=== PATIENT | male | born 1955 | race Two or more races ===

== ENCOUNTER 2019-07-05 20:13 | Observation (INO) | payer MEDICARE ==
[~2019-07-05] VITALS: Ht 172.7 cm; Wt 88.5 kg
[2019-07-05] MEDS ORDERED: METHYLPREDNISOLONE SOD SUCC 125 MG/2ML VIAL IV ONE (20:30)
[2019-07-05] MEDS ORDERED: ALBUTEROL/IPRATROPIUM 3 ML NEB NEB ONE (20:30)
[2019-07-05 20:48] LABS: BASOPHILS # (AUTO) 0.1 (0.0-0.1); BASOPHILS % 0.3 % (0.0-1.0); EOSINOPHILS # (AUTO) 0.2 (0.0-0.4); EOSINOPHILS % 1.5 % (0.0-6.0); HEMATOCRIT 45.2 % (38.2-49.6); HEMOGLOBIN 14.2 g/dL (14.0-18.0); LYMPHOCYTES # (AUTO) 1.9 (1.0-3.2); LYMPHOCYTES % 11.9 % (18.0-39.1); MEAN CORPUSCULAR HEMOGLOBIN 27.7 pg (28-32); MEAN CORPUSCULAR HGB CONC 31.4 g/dL (31-35); MEAN CORPUSCULAR VOLUME 88.3 fL (81-99); MONOCYTES # (AUTO) 0.7 (0.2-0.8); MONOCYTES % 4.1 % (4.4-11.3); NEUTROPHILS # (AUTO) 13.4 (2.1-6.9); NEUTROPHILS % 81.8 % (38.7-80.0); PLATELET COUNT 245 x10e3/uL (140-360); RED BLOOD COUNT 5.12 x10e6/uL (4.3-5.7); RED CELL DISTRIBUTION WIDTH 14.7 % (11.7-14.4)
[2019-07-05 21:06] LABS: ALANINE AMINOTRANSFERASE 17 IU/L (0-55); ALBUMIN 4.3 g/dL (3.5-5.0); ALBUMIN/GLOBULIN RATIO 1.1 (0.8-2.0); ALKALINE PHOSPHATASE 57 IU/L (40-150); ANION GAP 14.2 mmol/L (8-16); BLOOD UREA NITROGEN 16 mg/dL (7-26); BUN/CREATININE RATIO 15 (6-25); CALCIUM 9.1 mg/dL (8.4-10.2); CARBON DIOXIDE 22 mmol/L (22-29); CHLORIDE 106 mmol/L (98-107); CREATINE KINASE 71 IU/L (30-200); CREATININE, SERUM 1.04 mg/dL (0.72-1.25); EST GLOMERULAR FILTRATION RATE > 60 ML/MIN (60-); GLUCOSE 154 mg/dL (74-118); POTASSIUM 4.2 mmol/L (3.5-5.1); SODIUM 138 mmol/L (136-145)
[2019-07-05] MEDS ORDERED: SYNTHROID50 MCG PO (21:09)
[2019-07-05] MEDS ORDERED: CARVEDILOL12.5 MG PO (21:09)
[2019-07-05] MEDS ORDERED: LISINOPRIL10 MG PO (21:09)
[2019-07-05] MEDS ORDERED: OXYBUTYNIN CHLO10 MG (21:09)
[2019-07-05] MEDS ORDERED: PLAVIX75 MG PO (21:09)
--- NOTE | 2019-07-05 21:11 | NUR ---
Pt placed on 2 L N/C, tolerating well at this time; breathing e/u; SpO2 97-99%.
--- NOTE | 2019-07-05 21:14 | Diagnostic Imaging Report ---
Examination: Single AP view of the chest. COMPARISON: None. INDICATION: Shortness of breath DISCUSSION: The lungs are well-inflated. Perihilar predominant interstitial opacities without focal consolidation. No sizable pleural effusion or pneumothorax. Moderate enlargement of the cardiac silhouette with left subclavian approach implantable cardiac device. No acute osseous abnormalities. IMPRESSION: 1. Moderate enlargement of the cardiac silhouette with findings suggestive of interstitial pulmonary edema. Signed by: Dr. Elvin Serrano M.D. on 07/05/2019 9:12 PM
--- NOTE | 2019-07-05 21:40 | NUR ---
Pt now on RA, tolerating well thus far, will continue to monitor.
[2019-07-05] MEDS ORDERED: FUROSEMIDE INJ 10 MG/ML 4 ML VIAL IV ONE (21:45)
[2019-07-05] MEDS ORDERED: FUROSEMIDE20 MG (21:51)
--- OUTSIDE RECORDS SUMMARY | 2019-07-05 23:30 | XMS REPORT | Summary of Care ---
Author Author SAROJ CRUZ N.P. Unknown Address [facility] Phone Unavailable Care Team Providers Care Music Intern Name Role Phone ZOHAIB TORRES M.D. Unavailable Unavailable URBAN PIERCE MD Unavailable Unavailable ZOHAIB TORRES MD Unavailable Unavailable Functional Status Name Dates Details Functional status health issues are not documented Status: Name Dates Details Cognitive status health issues are not documented Status: Problems Name Dates Details Varicose veins (454.9, I83.90) Status: Active Varicose veins of bilateral lower extremities with pain (454.8, I83.813) Status: Active Varicose veins of both legs with edema (454.8, I83.893) Status: Active Medications Name Dates Details Atorvastatin Calcium TABS Active Levothyroxine Sodium TABS * Refills: 0 Active Osteo Bi-Flex Adv Double St TABS * Refills: 0 Active Carvedilol TABS * Refills: 0 Active Voltaren TBEC * Refills: 0 Active Clopidogrel Bisulfate TABS * Refills: 0 Active Albuterol AERS * Refills: 0 Active Ventolin HFA AERS * Refills: 0 Active Aspirin TABS * Refills: 0 Active Relistor TABS * Refills: 0 Active Oxybutynin Chloride TABS * Refills: 0 Active Lisinopril TABS * Refills: 0 Active Amiodarone HCl TABS * Refills: 0 Active Allergies and Adverse Reactions Name Dates Details No Known Drug Allergies (Allergy) Status: Active Past Medical History Name Dates Details H/O ventricular tachycardia (V12.59, Z86.79) Status: Resolved History of arthritis (V13.4, Z87.39) Status: Resolved History of CAD in [place] artery (414.01, I25.10) Status: Resolved History of hyperlipidemia (V12.29, Z86.39) Status: Resolved History of hypertension (V12.59, Z86.79) Status: Resolved History of hypothyroidism (V12.29, Z86.39) Status: Resolved History of ischemic cardiomyopathy (V45.89, Z86.79) Status: Resolved History of morbid obesity (V13.89, Z87.898) Status: Resolved History of stroke (V12.54, Z86.73) Status: Resolved Procedures Procedure Dates Details History of Cardioverter defibrillator insertion Completed History of PTCA Completed Immunization Name Dates Details Immunizations not documented Social History Name Dates Details - Status: Name Dates Details Never smoker Vital Signs Date Test Result Details No Known Vitals to report Results Date Description Value Details Results not documented Plan of Care Name Dates Details Planned Observations Planned Goals not documented Planned Encounters Appointment; ZOHAIB TORRES M.D. On: 30-Mar-2019 9:00 Interventions Provided Plan* I evaluated Mr. Whitney today for symptomatic varicose veins. Instructions Name Dates Details Instructions not documented Encounters Appointment; FRANCES PORTER Encounter Diagnosis: Problem not documented On: 27-May-2017 14:15 Appointment; FRANCES PORTER Encounter Diagnosis: Problem not documented On: 11-Aug-2017 9:15 Appointment; FRANCES PORTER Encounter Diagnosis: Problem not documented On: 29-Sep-2017 9:00 Appointment; MILO ORDONEZ Encounter Diagnosis: Problem not documented On: 03-Nov-2017 9:00 Appointment; FRANCES PORTER Encounter Diagnosis: Problem not documented On: 17-Nov-2017 11:15 Appointment; ZOHAIB TORRES M.D. Encounter Diagnosis: Problem not documented On: 30-Mar-2019 9:00
--- OUTSIDE RECORDS SUMMARY | 2019-07-05 23:30 | XMS REPORT ---
Author Author [facility] Address Unknown Phone Unavailable Care Team Providers Care Staff Writer Name Role Phone MARIELA TILLEY Unavailable Unavailable Problems This patient has no known problems. Allergies, Adverse Reactions, Alerts This patient has no known allergies or adverse reactions. Medications This patient has no known medications. Encounters Start Date/Time End Date/Time Encounter Type Admission Type Attending [facility] Facility Care Department Encounter ID 2019-04-26 01:07:00 2019-04-26 01:07:00 Outpatient [id number] 2018-08-23 14:25:00 2018-08-23 14:25:00 Outpatient [facility] [id number] 2018-08-16 19:25:00 2018-08-16 19:25:00 Emergency E [id number] Results Test Description Test Time Test Comments Text Results Atomic Results Result Comments CHEST SINGLE (PORTABLE) 2019-07-05 21:10:00 [place] [id number] Patient Name: ЕКАТЕРИНА ISAACS MR #: [id number] : 1955 Age/Sex: 63/M Req #: [id number] Adm Physician: Ordered by: MARIELA TILLEY DO Report #: [id number] Location: ER Room/Bed: Procedure: [id number] DX/CHEST SINGLE (PORTABLE) Exam Date: 07/05/19 Exam Time: 2049 REPORT STATUS: Signed Examination: Single AP view of the chest. C OMPARISON: None. INDICATION: Shortness of breath DISCUSSION: The lungs are well-inflated. Perihilar predominant interstitial opacities without focal consolidation. No sizable pleural effusion or pneumothorax. Moderate enlargement of the cardiac silhouette with left subclavian approach implantable cardiac device. No acute osseous abnormalities. IMPRESSION: 1. Moderate enlargement of the cardiac silhouette with findings suggestive of interstitial pulmonary edema. Signed by: Dr. Oh Joel M.D. on 07/05/2019 9:12 PM Dictated By: OH JOEL MD 11 Transcribed By: FRANCISCO on 07/05/192111 COPY TO: MARIELA TILLEY DO
[2019-07-06] VITALS (9 sets, daily range): BP systolic 115–127; BP diastolic 59–87
--- NOTE | 2019-07-06 00:08 | NUR ---
Received patient from E.R. via wheelchair, assisted to bed. Alert and oriented, patient is able to ambulate with no difficulty. Patient is on a telemetry with continuous pulse ox. Snacks was offered and accepted by patient. No complains at this time.
[2019-07-06 03:30] LABS: ABG HCO3 23 mmol/L (23-28); ABG PCO2 40 mmHg (41-51); ABG PH 7.38 (7.31-7.41); ABG PO2 83 mmHg (80-105)
--- NOTE | 2019-07-06 06:11 | NUR ---
Dr. Saldana notified of this consult.
--- NOTE | 2019-07-06 06:54 | NUR ---
RECEIVED BEDSIDE SHIFT REPORT FROM OFF GOING NURSE. PATIENT IS RESTING IN BED, NO ACUTE DISTRESS NOTED. CALL LIGHT WITHIN REACH. BED IN THE LOWEST POSITION.
[2019-07-06 09:17] LABS: HEMATOCRIT 43.5 % (38.2-49.6); HEMOGLOBIN 13.6 g/dL (14.0-18.0); MEAN CORPUSCULAR HEMOGLOBIN 27.9 pg (28-32); MEAN CORPUSCULAR HGB CONC 31.3 g/dL (31-35); MEAN CORPUSCULAR VOLUME 89.1 fL (81-99); PLATELET COUNT 207 x10e3/uL (140-360); RED BLOOD COUNT 4.88 x10e6/uL (4.3-5.7); RED CELL DISTRIBUTION WIDTH 14.6 % (11.7-14.4)
[2019-07-06] MEDS: CLOPIDOGREL BISULFATE 75 MG TAB PO SCH (09:45)
[2019-07-06 09:56] LABS: CHOL/HDL RATIO 5.7 (3.9-4.7)
[2019-07-06 10:16] LABS: THYROID STIMULATING HORMONE 4.169 uIU/mL (0.350-4.940)
[2019-07-06] MEDS: FUROSEMIDE INJ 10 MG/ML 4 ML VIAL IV SCH (10:19)
[2019-07-06 11:07] LABS: LYMPHOCYTES % (MANUAL) 9 % (19-48); MONOCYTES % (MANUAL) 1 % (3.4-9.0); NEUTROPHILS % (MANUAL) 90 % (40-74)
[2019-07-06 11:08] LABS: PLATELET ESTIMATE ADEQUATE; PLATELET MORPHOLOGY COMMENT NORMAL; RBC MORPHOLOGY COMMENT NORMAL
--- NOTE | 2019-07-06 16:56 | NUR ---
Nutrition Screen Note RD Recommendation for Physician: - continue cardiac diet Plan of Care: RD following, monitoring for tolerance and adequacy Nutrition reason for involvement: Diagnosis - CHF Primary Diagnose(s): CHF exacerbation PMH: unknown - no H/P in chart at this time Ht: 68 in Wt:195 lb BMI: 29.6 kg/m2 IBW:[address] Assessment: (07/06) Chart reviewed. Labs and meds reviewed. Pt is a 63 year old male admitted with CHF exacerbation. Pt was sleeping at time of visit and no family members were present; therefore, nutrition history is limited. Per chart, pt consumed 100% of breakfast and lunch today. RD is available for diet education as needed. Will continue to monitor. Current Diet: cardiac Malnutrition Evaluation (07/06) The patient does not meet criteria for a specified degree of malnutrition at this time. Will re-evaluate at follow-up as appropriate. Diet Education Needs Assessment: RD is available for diet education as needed Nutrition Care Level: low Signed: Gi Oliva, LEATHA, LD
--- NOTE | 2019-07-06 17:19 | Consultation ---
DATE OF CONSULTATION: 07/06/2019 REASON FOR CONSULTATION: CHF. CHIEF COMPLAINT: Shortness of breath. HISTORY OF PRESENT ILLNESS: This is a 63-year-old male, very poor historian with history of CAD, status post PCI in about 2009; CHF, status post ICD placement; hypertension; hypothyroidism; and history of stroke in 2017. The patient presents to [facility] ER with complaints of shortness of breath. X-ray noted with pulmonary edema. Cardiology was consulted. The patient is seen in room, a very poor historian and has been followed by Dr. Chávez, Cardiology at [facility]; however, the patient presents with shortness of breath after on the phone with family member, called EMS in which he was brought to the ER for further evaluation. Currently, the patient with mild shortness of breath. Denies any chest pain. PAST MEDICAL HISTORY: 1. CAD, status post PCI in about 2009. 2. CHF, status post ICD. 3. Hypertension. 4. Hypothyroidism. 5. Stroke 2017. PAST SURGICAL HISTORY: 1. PCI in 2009. 2. Hemorrhoidectomy. 3. Lumbar surgery. 4. Right inguinal hernia surgery. SOCIAL HISTORY: He lives alone, is . Positive for tobacco use and positive for alcohol use. FAMILY HISTORY: Mother with history of diabetes. Father , status post homicide. HOME MEDICATIONS: Include: 1. Coreg 25 mg twice a day. 2. Plavix 75 mg daily. 3. Levothyroxine 50 mcg daily. 4. Lisinopril 20 mg daily. 5. Oxybutynin 10 mg daily. ALLERGIES: NO KNOWN ALLERGIES. REVIEW OF SYSTEMS: GENERAL: Denies any weight changes, fatigue, weakness, fevers, chills, or night sweats. SKIN: No rashes or bruises. HEENT: No nausea, vomiting, diarrhea, constipation, vision change, blurred vision, double vision, epistaxis, sore throat, swollen neck. HEART: Denies any chest pain. Positive for dyspnea on exertion. No orthopnea, PND, or lower extremity edema. RESPIRATORY: Positive for shortness of breath. Positive for cough. Denies any hemoptysis. GASTROINTESTINAL: Reports good appetite. No nausea. No vomiting. No hematochezia, bloody or tarry stools. URINARY: Positive for frequency and urgency. No hematuria, dysuria. VASCULAR: Denies any lower extremity edema. MUSCULOSKELETAL: Positive for generalized joint pain and back pain. NEUROLOGIC: Denies any numbness, tingling. Slight right-sided weakness, chronic. Denies any seizures, blackouts. HEMATOLOGY: Denies easy bruising, bleeding. ENDOCRINE: Denies any heat or cold intolerance, polyuria, polydipsia, or polyphagia. PHYSICAL EXAMINATION: VITAL SIGNS: Height 58 inches, weight 195 pounds, and BMI 29. Temperature 96.2, pulse 88, respiratory rate 19, blood pressure 121/77, and pulse ox 97% on room air. GENERAL: A very poor historian with slightly tangential thinking in mild shortness of breath. SKIN: No rashes, bruises noted. HEENT: Normocephalic. Pupils are equal and reactive. Extraocular movements intact. NECK: Trachea midline. No JVD. No thyromegaly noted. HEART: Regular rate and rhythm. PMI about 5th intercostal space, left ICD scar noted. LUNGS: Bilateral breath sounds with crackles at the bases. Good airway entry and exit. ABDOMEN: Soft, nontender, and nondistended. No organomegaly noted. MUSCULOSKELETAL: Good muscle strength throughout. No lower extremity edema noted. VASCULAR: +2 radial pulses, +2 DP/PT pulses bilaterally. NEUROLOGIC: Cranial nerves II through XII seem intact. LABORATORY DATA: White count 16, hemoglobin 14, hematocrit 45, and platelets 245. Sodium 138, potassium 4.2, chloride 106, BUN 16, and creatinine 1.0. Troponin 0.037. BNP 747. Chest x-ray with moderate cardiac enlargement and pulmonary edema. EKG, sinus rhythm with frequent PVCs. ABG; pH of 7.38, CO2 of 40, PaO2 of 83, and bicarb 23. ASSESSMENT AND PLAN: 1. Acute on chronic systolic heart failure. 2. Coronary artery disease, status post PCI in 2009. 3. Status post ICD. 4. Hypertension. 5. Hypothyroidism. PLAN: 1. The patient presents to [facility] with complaints of shortness of breath, noted pulmonary edema on imaging with mild shortness of breath currently. 2. We will go ahead and give the patient Lasix. 3. Initial cardiac enzymes negative. We will cycle cardiac enzymes. 4. Echo to evaluate heart function and structure. 5. We will check a TSH and lipid panel. 6. We will continue to follow and adjust cardiac therapy as clinical course dictates. 7. The patient to follow up Dr. Chávez postdischarge. Thank you very much for this consult. Dictated by Elvin Humphries NP SEEN AND EVALUATED, AGREE WITH NOTE Brandy Saldana MD DC/MONICA /[id number] LEYDA
[2019-07-06] MEDS: CARVEDILOL 12.5 MG TAB PO SCH (17:24)
--- NOTE | 2019-07-06 19:25 | NUR ---
Bedside shift report given to oncoming nurse. Patient is resting in bed. No acute distress noted. Call light within reach. Bed in the lowest position.
[2019-07-07 04:00] VITALS: BP 122/64
[2019-07-07] MEDS ORDERED: LEVOTHYROXINE SODIUM 50 MCG TAB PO SCH (06:00)
--- NOTE | 2019-07-07 07:00 | NUR ---
bedside report done. pt is alert resting in bed, no s/s of distress. call light within reach and instructed pt to call RN for help
[2019-07-07 08:15] VITALS: BP 126/81
[2019-07-07] MEDS: CLOPIDOGREL BISULFATE 75 MG TAB PO SCH (09:00)
[2019-07-07] MEDS ORDERED: LISINOPRIL 20 MG TAB PO SCH (09:00)
[2019-07-07] MEDS: CARVEDILOL 12.5 MG TAB PO SCH (09:00)
[2019-07-07] MEDS ORDERED: CLOPIDOGREL BISULFATE 75 MG TAB PO SCH (09:00)
[2019-07-07] MEDS ORDERED: OXYBUTYNIN CHLORIDE XL 5 MG TAB PO SCH (09:00)
[2019-07-07] MEDS: FUROSEMIDE INJ 10 MG/ML 4 ML VIAL IV SCH (09:46)
[2019-07-07 11:19] VITALS: BP 126/81
[2019-07-07 12:07] VITALS: BP 144/81
--- NOTE | 2019-07-08 03:33 | Discharge Summary ---
HOSPITAL COURSE: Mr. Whitney is a 63-year-old man with history of coronary artery disease, status post PCI, CHF, status post ICD placement, hypertension, hypothyroidism, came to the emergency room complaining of shortness of breath. The patient sees Dr. Chávez as an outpatient. He has been seen by Dr. Saldana today that ordered echocardiogram. Cardiac enzymes have been negative. The patient is feeling better, so if it is okay with Dr. Saldana, he is going to be discharged home and follow up as an outpatient. PHYSICAL EXAMINATION: GENERAL: Today, he is awake and alert. VITAL SIGNS: Temperature is 96.7, blood pressure is 126/81. HEART: Regular rate. LUNGS: Clear to auscultation. ABDOMEN: Soft. LABORATORY DATA: On the blood work, potassium is 4.2, creatinine is 1.04, glucose is 154. Cardiac enzymes x3 negative. Cholesterol is 258. White count is 8.72, hemoglobin 13.6, and hematocrit 43.5. Chest x-ray on admission shows moderately enlarged heart suggestive of interstitial pulmonary edema. ASSESSMENT: 1. Acute on chronic systolic congestive heart failure. 2. Coronary artery disease, status post percutaneous coronary intervention. 3. Presence of cardiac defibrillator. 4. Hypertension. 5. Hyperlipidemia. 6. Hypothyroidism. 7. Leukocytosis, resolved. PLAN: At the present time is to discharge the patient home. He is to continue his beta paulino and Plavix. He is also on lisinopril. We are going to add furosemide. The patient also need statin. He is going to follow up with his PCP in one week. He is to call me or come back to the emergency room if any recurrent problem. Please see home medication reconciliation list. MD RAJ Jones/MODL /[id number]
== END 2019-07-07 12:30 | disposition home or self-care (01) ==
LOC: EDBD 20:13 → ER 20:13 → ERHOLD 23:16 → MED/SURG3 07-06 00:08
PROVIDERS: ADMIT Internal Medicine; ATTEND Internal Medicine
DX: I11.0 Hypertensive heart disease with heart failure (principal); I50.23 Acute on chronic systolic (congestive) heart failure; E03.9 Hypothyroidism, unspecified; Z95.810 Presence of automatic (implantable) cardiac defibrillator; E78.5 Hyperlipidemia, unspecified; I25.10 Atherosclerotic heart disease of native coronary artery without angina pectoris; Z95.1 Presence of aortocoronary bypass graft
CPT/HCPCS: 36415 ×2; 71045; 80053; 80061; 82550; 82553; 82805; 83880; 84443; 84484 ×2; 85007; 85025; 85027; 93005; 93306; 94644; 99285; G0378 ×3; J1940 ×3; J2930